=== PATIENT | female | born 1990 | race Caucasian/White ===

== ENCOUNTER → 2020-04-14 | Outpatient (CLI) | payer OTHER ==
[~2020-04-14] MED LIST: IBU600 MG PO; MACROBID 1100 MG/CAP PO; PERCOCET 325 MG1 TA2 PO; PRENATAL; PROAIR HFA0.09 MG/AC IH; VITAMIN D31000 I1 PO
== END ==
LOC: COL.RAD 14:00
DX: M79.89 Other specified soft tissue disorders (principal); R93.41 Abnormal radiologic findings on diagnostic imaging of renal pelvis, ureter, or bladder

== ENCOUNTER → 2020-05-12 | Outpatient (CLI) | payer OTHER | LOC: COL.RAD 07:47 | DX: N32.9 Bladder disorder, unspecified (principal) ==

== ENCOUNTER 2020-09-01 06:28 | Inpatient (IN) | payer OTHER ==
[2020-09-01] VITALS (69 sets, daily range): BP systolic 110–171; BP diastolic 61–96; PULSE 65–105; TEMP 97.7–99
[~2020-09-01] VITALS: Ht 170.2 cm; Wt 90.0 kg
[2020-09-01] MEDS ORDERED: PRENATAL (06:52)
[2020-09-01] MEDS ORDERED: PROAIR HFA0.09 MG/AC IH (06:52)
[2020-09-01 07:49] LABS: BASO % 0.3 % (0.0-2.0); EOS # 0.1 (0.0-0.7); EOS % 1.3 % (0-4.0); GRAN # 7.4 (1.4-6.5); GRAN % 71.4 % (42.2-75.2); HEMOGLOBIN 13.5 g/dl (12.5-16.0); LYMPH # 2.1 (1.2-3.4); LYMPH % 20.4 % (20.0-51.0); MEAN CELL VOLUME 92 fl (80.0-100.0); MEAN CORPUSCULAR HEMOGLOBIN 30 pg (27.0-31.0); MEAN CORPUSCULAR HGB CONC 33 g/dl (33.0-37.0); MEAN PLATELET VOLUME 11.9 fl (7.4-10.4); MONO # 0.6 (0.1-0.6); MONO % 5.7 % (1.7-9.3); PLATELET COUNT 214 K/mm3 (130-400); RED BLOOD COUNT 4.47 M/mm3 (4.10-5.30); REDCELL DISTRIBUTION WIDTH-CV 13.9 % (11.5-14.5)
[2020-09-02] VITALS (12 sets, daily range): BP systolic 99–122; BP diastolic 54–73; PULSE 78–92; TEMP 97.5–98.5
[2020-09-02] MEDS ORDERED: IBU600 MG PO (08:22)
[2020-09-02] MEDS ORDERED: PERCOCET 325 MG1 TA2 PO (08:22)
--- NOTE | 2020-09-02 10:46 | NUR ---
Initial visit; Patient thanked Cab Station Attendant for offering congratulations and God's blessings for the of her daughter. Cab Station Attendant thanked Mom for choosing [facility].
--- NOTE | 2020-09-02 18:45 | NUR ---
Report recieved. Resting in bed at this time. Updated whiteboard and reviewed POC.
[2020-09-03 08:15] VITALS: BP 105/70; PULSE 82; TEMP 97.6
== END 2020-09-03 16:05 | disposition home or self-care (01) | DRG 788 ==
LOC: LDR 06:28 → OB 06:28
PROVIDERS: ADMIT Obstetrics & Gynecology
PROC: 10D00Z1 Extraction of Products of Conception, Low, Open Approach (ICD-10-PCS; principal; 2020-09-01)
DX: O48.0 Post-term pregnancy (principal); Z3A.40 40 weeks gestation of pregnancy; Z37.0 Single live birth; O99.824 Streptococcus B carrier state complicating childbirth; O62.2 Other uterine inertia; J45.909 Unspecified asthma, uncomplicated; O62.1 Secondary uterine inertia; O99.52 Diseases of the respiratory system complicating childbirth
CPT/HCPCS: J2540; J2590; J7120

== ENCOUNTER 2020-10-07 12:29 | Day surgery (SDC) | payer OTHER ==
[~2020-10-07] VITALS: Ht 170.2 cm; Wt 75.0 kg
[~2020-10-07 12:29] MED LIST changes: -MACROBID 1100 MG/CAP PO; -VITAMIN D31000 I1 PO
[2020-10-07 13:11] VITALS: BP 104/65; PULSE 76; TEMP 98.2
[2020-10-07] MEDS ORDERED: VITAMIN D31000 I1 PO (14:27)
[2020-10-07] MEDS ORDERED: MACROBID 1100 MG/CAP PO (15:27)
[2020-10-07 15:55] VITALS: BP 111/69; PULSE 64
--- NOTE | 2020-10-07 15:55 | NUR ---
Patient returns to room 4 per cart from PACU accompanied by Stacy YOUSIF and is awake and alert. Temp 96.8 and warm blankets applied. Room air sats 100%. Dahl catheter to dependent drainage with pink tinged urine. IV fluids infusing and site is free of redness. Spouse in room. Siderails up x2 and call light in reach.
[2020-10-07 16:00] VITALS: TEMP 96.8
[2020-10-07 16:10] VITALS: BP 114/72; PULSE 50
--- NOTE | 2020-10-07 16:10 | NUR ---
Resting with eyes closed. Spouse in room.
[2020-10-07 16:25] VITALS: BP 110/67; PULSE 61
--- NOTE | 2020-10-07 16:25 | NUR ---
Eating muffin drinking juice. Urine pink tinged.
[2020-10-07 16:40] VITALS: BP 99/64; PULSE 63
--- NOTE | 2020-10-07 16:40 | NUR ---
Tolerated muffin and juice. Denies pain or nausea.
--- NOTE | 2020-10-07 16:45 | NUR ---
Catheter care instructions given and voices understanding of this. Provided leg bag to be used during the day and large dependent drainage bag to be used at night. Given bag of alcohol wipes for home use.
--- NOTE | 2020-10-07 17:05 | NUR ---
Dismissal instructions given and voices understanding of these.
--- NOTE | 2020-10-07 17:08 | NUR ---
Patient dismissed to home driven by spouse and taken to the front door per wheelchair and assisted into vehicle.
== END 2020-10-07 17:08 | disposition home or self-care (01) ==
LOC: SDCO 12:29
DX: C67.9 Malignant neoplasm of bladder, unspecified (principal); J45.909 Unspecified asthma, uncomplicated; R93.41 Abnormal radiologic findings on diagnostic imaging of renal pelvis, ureter, or bladder; Z90.89 Acquired absence of other organs; Z79.899 Other long term (current) drug therapy; Z87.891 Personal history of nicotine dependence; G89.29 Other chronic pain; Z20.822 Contact with and (suspected) exposure to COVID-19
CPT/HCPCS: J0690; J2704; J3010; J7120